=== PATIENT | male | born 1970 | race Caucasian/White ===

== ENCOUNTER 2018-12-13 00:21 | Outpatient (CLI) | payer MEDICARE, SELFPAY ==
--- NOTE | 2018-12-13 10:00 | DI.NM_ITS ---
SYMPTOMS/DIAGNOSIS: HYPERTHYROIDISM, THYROMEGALY, DETERMINE THYROID UPTAKE THYROID UPTAKE AND SCAN: Please see dictation dated 12/14/18 for the complete results of these studies.
== END 2018-12-13 00:41 ==
PROVIDERS: Visit Provider Nurse Practitioner Adult Health
DX: E05.90 Thyrotoxicosis, unspecified without thyrotoxic crisis or storm (principal); E01.0 Iodine-deficiency related diffuse (endemic) goiter
CPT/HCPCS: A9516

== ENCOUNTER 2018-12-14 02:11 | Outpatient (CLI) | payer OTHER, MEDICARE, SELFPAY ==
--- NOTE | 2018-12-14 10:00 | DI.NM_ITS ---
SYMPTOMS/DIAGNOSIS: HYPERTHYROIDISM, THYROMEGALY, DETERMINATE THYROID IODINE UPTAKE THYROID UPTAKE AND SCAN: 332 microcuries of I123 Sodium Iodide was administered po for the thyroid uptake. The 4 hour uptake is calculated at 34%. This is above the normal range of 6-18%. The 24 hour uptake is calculated at 68%. The normal range is 10-35%. The thyroid scan images show homogeneous uptake bilaterally. No hot or cold nodules are identified. IMPRESSION: Elevated thyroid uptake. Normal appearing scan.
== END 2018-12-14 02:31 ==
PROVIDERS: Visit Provider Nurse Practitioner Adult Health
DX: E05.90 Thyrotoxicosis, unspecified without thyrotoxic crisis or storm (principal); E01.0 Iodine-deficiency related diffuse (endemic) goiter; R94.6 Abnormal results of thyroid function studies
CPT/HCPCS: 78014; A9512

== ENCOUNTER 2018-12-20 00:55 | Outpatient (CLI) | payer OTHER, SELFPAY ==
--- NOTE | 2018-12-20 09:10 | DI.US_ITS ---
SYMPTOMS/DIAGNOSIS: HYPERTHYROIDISM, THYROMEGALY, ? NODULARITY, MASS OR GOITER THYROID ULTRASOUND: Thyroid ultrasound was performed according to the usual protocol. Right thyroid lobe measures 55 x 15 x 22 mm. Left thyroid lobe measures 44 x 18 x 20 mm. The isthmus is about 4 mm in thickness. There is 5 x 5 x 7 mm in diameter solid nodule of the mid pole of the right thyroid lobe. The thyroid parenchyma is markedly heterogeneous throughout. 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
== END 2018-12-20 01:15 ==
PROVIDERS: Visit Provider Nurse Practitioner Adult Health
DX: E05.90 Thyrotoxicosis, unspecified without thyrotoxic crisis or storm (principal); E01.0 Iodine-deficiency related diffuse (endemic) goiter; E04.2 Nontoxic multinodular goiter
CPT/HCPCS: 76536